=== PATIENT | female | born 1945 | race Caucasian/White ===

== ENCOUNTER → 2016-05-03 | Outpatient (CLI) | payer OTHER, MEDICARE | LOC: BMCIMAGING 14:17 | PROVIDERS: ATTEND Family Medicine Sports Medicine | DX: Z13.820 Encounter for screening for osteoporosis (principal); M85.80 Other specified disorders of bone density and structure, unspecified site ==

== ENCOUNTER → 2016-05-17 | Outpatient (CLI) | payer OTHER, MEDICARE | LOC: FIMAGING 13:53 | DX: Z12.31 Encounter for screening mammogram for malignant neoplasm of breast (principal) | CPT/HCPCS: G0202 ==

== ENCOUNTER → 2016-06-10 | Outpatient (CLI) | payer OTHER, MEDICARE | LOC: BMCIMAGING 18:39 | PROVIDERS: ATTEND Family Medicine | DX: S92.351A Displaced fracture of fifth metatarsal bone, right foot, initial encounter for closed fracture (principal) ==

== ENCOUNTER → 2016-07-08 | Outpatient (CLI) | payer OTHER, MEDICARE | LOC: BMCIMAGING 09:38 | PROVIDERS: ATTEND Podiatrist Foot & Ankle Surgery | DX: S92.354D Nondisplaced fracture of fifth metatarsal bone, right foot, subsequent encounter for fracture with routine healing (principal) ==

== ENCOUNTER 2016-07-13 19:11 | Emergency (ER) | payer OTHER, MEDICARE ==
[2016-07-13 19:27] VITALS: TEMP 98.6
--- NOTE | 2016-07-13 20:28 | EDPHY ---
H & P Time Seen by Provider: 07/13/16 19:31 HPI/ROS: CHIEF COMPLAINT: Right foot injury HISTORY OF PRESENT ILLNESS: 71-year-old female presents to the emergency department with concerns about right foot injury. Patient broke her 5th metatarsal approximately 1 month ago and then had surgery today with Carlos Ramirez. She states that she was discharged from the hospital at 5:30 p.m. and apparently lost her balance and then fell injuring her right foot. She states that she also hit the back of her head. She did not lose consciousness. She denies a headache. Denies neck or back pain. Denies chest pain or difficulty breathing. Denies abdominal pain. The patient called Carlos Ramirez and she was told to come to the emergency department for imaging. REVIEW OF SYSTEMS: Constitutional: No fever, no chills. Eyes: No double or blurry vision. ENT: No sore throat. Respiratory: No cough, no shortness of breath. Cardiac: No chest pain. Gastrointestinal: No abdominal pain, vomiting or diarrhea. Genitourinary: No dysuria. Musculoskeletal: No neck or back pain. Skin: No rashes. Neurological: No headache. Past Medical/Surgical History: Right foot surgery today with Carlos Ramirez for 5th metatarsal fracture Social History: Single and lives in [place] Smoking Status: Never smoked Physical Exam: General Appearance: Alert, no distress. No visible signs of trauma to her head. She is mentating normally and answering questions appropriately. Eyes: Pupils equal and round. Extraocular motions are all intact. ENT: Mouth: Mucous membranes moist. Respiratory: No wheezing, rhonchi, or rales, lungs are clear to auscultation. Cardiovascular: Regular rate and rhythm. Gastrointestinal: Abdomen is soft and nontender, no masses, no rebound or guarding, bowel sounds normal. Neurological: Alert and oriented x 3, cranial nerves II through XII grossly intact Skin: Warm and dry, no rashes. Musculoskeletal: Nontender to palpate along the cervical, thoracic or lumbar spine. Neck is supple. Extremities: Full range of motion of her upper extremities bilaterally in her left lower extremity. Her right foot is in a long-leg posterior Ortho Glass splint which was removed. She has a sutured incision to the dorsal lateral aspect of her right foot overlying 5th metatarsal. There is small amount of bleeding noted. There is no redness or warmth or signs of infection. No purulent drainage. No lymphangitis. Psychiatric: Patient is oriented X 3, there is no agitation. Constitutional: Initial Vital Signs Temperature (C) 37 C 07/13/16 19:24 Heart Rate 85 07/13/16 19:24 Respiratory Rate 16 07/13/16 19:24 Blood Pressure 148/81 H 07/13/16 19:24 O2 Sat (%) 93 07/13/16 19:24 O2 Delivery Mode Room Air Allergies/Adverse Reactions: simvastatin [From Zocor] Allergy (Severe, Verified 07/13/16 19:23) EXTREME LEG PAIN Sulfa (Sulfonamide Antibiotics) Allergy (Intermediate, Verified 07/13/16 19:23) Hives Home Medications: Medication Instructions Recorded Atorvastatin Calcium [Lipitor 40 40 mg PO HS 06/15/11 mg (RX)] metFORMIN HCL [Glucophage 500 mg PO BID 06/15/11 (RX)] Acyclovir [Zovirax] 0 mg PO HS 06/29/12 Effexor DAILY06 07/12/16 Fish Oil DAILY 07/12/16 Herbal Drugs 07/12/16 Tumeric DAILY 07/12/16 Hydrocodone/APAP 5/325 [[place] 1 each PO Q4-6PRN PRN #15 tab 07/13/16 5/325 (*)] Medical Decision Making - Diagnostics Imaging Results: Imaging Impressions Foot X-Ray 07/13/16 20:07 Impression: Postoperative changes of ORIF with postoperative decrease in displacement of the fifth metatarsal fracture compared to the preoperative study. 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 ED Course/Re-evaluation: 71-year-old female presents after mechanical fall injuring her right foot that she just had surgery on today. X-rays reveal hardware is intact. Her incision is sutured. This was redressed and she was placed in posterior Ortho Glass splint. She was given prescription for hydrocodone per her request. She was also asking for referral to a different orthopedic surgeon not at the [facility]. She was given Dr. Yadiel Meneses information. Differential Diagnosis: Including but not limited to fracture, dislocation, contusion, sprain Departure - Departure Disposition: Home, Routine, Self-Care Clinical Impression: Healing fracture right foot Contusion of right foot Qualifiers: Encounter type: initial encounter Qualified Code(s): S90.31XA - Contusion of right foot, initial encounter Condition: Good Instructions: Foot Contusion (ED) Additional Instructions: Keep dressing and splint on until follow-up. Referrals: Yadiel Meneses MD [Medical Doctor] - As per Instructions Carlos Ramirez DPM [Doctor of Podiatric Medicine] - As per Instructions Anurag Pearson MD [Medical Doctor] - As per Instructions ( [facility] orthopedic surgeon) Prescriptions: Hydrocodone/APAP 5/325 [[place] 5/325 (*)] 1 each PO Q4-6PRN PRN #15 tab PRN Reason: Pain, Severe
[2016-07-13 21:43] VITALS: BP 132/76; PULSE 80; RESP 18; O2SAT 94
== END 2016-07-13 21:47 | disposition home or self-care (01) ==
DX: S92.351A Displaced fracture of fifth metatarsal bone, right foot, initial encounter for closed fracture (principal); S90.31XA Contusion of right foot, initial encounter; W19.XXXA Unspecified fall, initial encounter
CPT/HCPCS: C1713; J0690; J1100; J2250; J2405; J2704; J3010

== ENCOUNTER → 2016-07-13 | Day surgery (SDC) | payer OTHER, MEDICARE ==
[~2016-07-13] MED LIST: BUPIVACAINE 0.5% 30 ML SDV ONE; CEFAZOLIN 2 GM/DEXTROSE/100 ML BAG IV ONE; CHLORHEXIDINE GLUC HIBICLENS 118 ML BTL TP ONE; DEXAMETHASONE 4 MG/ML VIAL ONE; LIDOCAINE 1% 300 MG/30 ML SDV ONE; MIDAZOLAM 2 MG/2 ML VIAL ONE; ONDANSETRON 4 MG/2 ML VIAL ONE; OXYCODONE/APAP 5/325 TAB PO PRN; PROPOFOL/EMULSION 500 MG/50 ML BOTTLE IV ONE; ceFAZolin 2 GM/DEXTROSE 100 ML IV ONE; fentaNYL 100 MCG/2 ML INJ ONE
--- NOTE | 2016-07-13 17:57 | GOP ---
[f rep st] OPERATIVE REPORT DATE OF OPERATION: 07/13/2016 SURGEON: Carlos Ramirez DPM DESK REPRESENTATIVE: None. ANESTHESIA: Local with monitored anesthesia care. PREOPERATIVE DIAGNOSIS: Avulsion fracture of right 5th metatarsal base. POSTOPERATIVE DIAGNOSIS: Avulsion fracture of right 5th metatarsal base. PROCEDURE PERFORMED: Open reduction internal fixation of the right 5th metatarsal fracture. FINDINGS: SPECIMENS: None. ESTIMATED BLOOD LOSS: Scant. DESCRIPTION OF PROCEDURE: Under mild sedation, the patient was brought into the operating room, michael kelsey on the operating table in a supine position. Following further IV sedation, 24 cc of 0.5% Prem ine plain was infiltrated about the patient's right lateral mid foot. The foot was then scrubbed, p repped, and draped in the usual aseptic manner. A sterile pneumatic tourniquet was placed about the patient's well-padded supramalleolar area of the right lower extremity. An Esmarch bandage was uti lized to exsanguinate the patient's right foot, and the tourniquet was inflated to 250 mmHg. It felix uld also be noted that within 30 minutes prior to incision, 2 g of Ancef was infiltrated via IV. Attention was then directed to the area overlying the lateral aspect of the patient's 5th metatarsal base where a 5 cm linear longitudinal incision was made in line and parallel with the longitudinal axis of the 5th metatarsal. The incision was deepened via sharp and blunt dissection care being javier en to identify and retract all vital neural and vascular structures. The sural nerve was identified and retracted dorsally. Periosteal tissue was then incised in line with the skin incision and refl ected dorsally and plantarly thus exposing the base of the 5th metatarsal. The fracture line was im mediately identified. The fracture site was evacuated of any hematoma and any soft tissue obstructi on via curettage. Bleeding surfaces were obtained. At this time, a universal hook plate was placed around the avulsion fracture/base of the 5th metatarsal and impacted into place with a tamp. This helped close down the fracture site partially. Then within the oblong hole in the distal portion of the hook plate, a 60 mm screw was drilled eccentrically and validated. This sucked down the fractu re site and reduced the fracture completely. At this time, locking screws were placed on either ady e of the nonlocking eccentrically drilled screw. A third locking screw was then placed within the f racture fragment itself to complete 2 sites of fixation on either side of the fracture site. The no nlocking screw was explanted and passed from the operative field as it was not validating. The woun d was then flushed with copious amounts of sterile normal saline. Final fluoroscopic x-rays were ta tye. The wound was closed in layers with 2-0 Vicryl closing the periosteal layer, 3-0 Monocryl clos ing the subcutaneous layer. A running baseball-type suture of 4-0 Prolene was used to reapproximate and coapt the skin. The wound was then dressed with Xeroform and a sterile compressive dressing co nsisting of 4 x 4's and Sheila. A light Coban wrap was also applied. The tourniquet was dropped, an d a prompt hyperemic response was noted to all digits of the right foot. A posterior splint was alison lied with the patient's ankle at 90 degrees. This was also used to help with any postoperative genia a. The patient tolerated the procedure and anesthesia well. She was transferred to the recovery room w ith vital signs stable and vascular status intact to all digits of the right foot. Following a anibal od of postoperative monitoring, the patient will be discharged home with the following written and o ral postoperative instructions: 1. Keep dressing clean, dry, and intact. 2. Use caution while taking pain medication. 3. Ice and elevate as instructed. 4. Nonweightbearing at all times with crutches and/or knee scooter. 5. All followup questions and concerns should be directed toward [facility] at [phone]. HEMOSTASIS: Pneumatic ankle tourniquet at 250 mmHg x47 minutes. MATERIALS: A universal Arthrex hook plate with 3 locking screws measuring 10, 16, and 8 mm respecti vely injectables 24 cc of 0.5% Marcaine plain as well as 10 cc of 1% lidocaine plain. COMPLICATIONS: None. INDICATIONS FOR PROCEDURE: The patient initially showed up to my office with a nondisplaced avulsio n fracture of the right 5th metatarsal base. The patient then followed up 5 days ago after turning her foot or stepping down and hearing a pop. The followup x-ray showed a 4 mm displacement of the a vulsion fracture. The patient understands the risks, benefits, and alternatives to the procedure, p resented and wishes to proceed. /[id number]/MODL
== END | disposition home or self-care (01) ==
LOC: FSGY 12:54
PROVIDERS: ATTEND Podiatrist Foot & Ankle Surgery
PROC: 0QSN04Z Reposition Right Metatarsal with Internal Fixation Device, Open Approach (ICD-10-PCS; principal; 2016-07-13 14:30)
DX: S92.351A Displaced fracture of fifth metatarsal bone, right foot, initial encounter for closed fracture (principal); E11.9 Type 2 diabetes mellitus without complications; I10 Essential (primary) hypertension; I25.10 Atherosclerotic heart disease of native coronary artery without angina pectoris; G47.33 Obstructive sleep apnea (adult) (pediatric); E78.5 Hyperlipidemia, unspecified; W19.XXXA Unspecified fall, initial encounter
CPT/HCPCS: C1713; J0690; J1100; J2250; J2405; J2704; J3010

== ENCOUNTER → 2017-04-15 | Outpatient (CLI) | payer OTHER, MEDICARE | LOC: BMCIMAGING 10:00 | PROVIDERS: ATTEND Family Medicine | DX: M25.552 Pain in left hip (principal); Z96.642 Presence of left artificial hip joint ==

== ENCOUNTER → 2017-07-25 | Outpatient (CLI) | payer OTHER, MEDICARE | LOC: BMCIMAGING 12:00 | PROVIDERS: ATTEND Family Medicine | DX: Z12.31 Encounter for screening mammogram for malignant neoplasm of breast (principal) ==

== ENCOUNTER → 2017-10-16 | Outpatient (CLI) | payer OTHER, MEDICARE | LOC: BMCIMAGING 11:03 | PROVIDERS: ATTEND Family Medicine | DX: M23.41 Loose body in knee, right knee (principal) ==

== ENCOUNTER 2017-12-16 09:29 | Emergency (ER) | payer OTHER, MEDICARE ==
[2017-12-16 09:37] VITALS: BP 115/81
--- NOTE | 2017-12-16 10:03 | EDPHY ---
H & P Time Seen by Provider: 12/16/17 09:50 HPI/ROS: HPI Concerned about swelling of left arm. 72-year-old female by private vehicle. She states that she has a small scar which is on the posterior proximal aspect of her left forearm just distal to her elbow. She reports she has had this for some time. She is concerned that the scars more prominent than it should be and that it may be infected. She denies any fever. No other associated signs or symptoms. She denies significant pain. ROS: Constitutional: No fever, no chills. No weakness. Musculoskeletal: No back pain. No neck pain. As above. No other extremity pain. Skin: No rashes. As above. Neurological: No focal weakness or altered sensation. Past medical history: Right foot surgery, prediabetic, hyperlipidemia. Social history: She is here by herself. No alcohol. Physical Exam: General Appearance: Alert, no distress. This patient is responding to questions appropriately and in full sentences. This patient appears well- hydrated and well-nourished. Eyes: Pupils equal and round no pallor or injection. No lid edema, erythema or injection. Left upper extremity exam: She has a small scar measuring 1.5 cm which is well- healed and with no evidence of infection involving the posterior proximal aspect of the left forearm skin. There is no associated erythema, warmth, induration, edema or fluctuance. The left upper extremity is neurovascularly intact. There is no asymmetric swelling of the left upper extremity relative to the right upper extremity. The muscle compartments of the left upper extremity are soft. Neurological: Motor sensory function is grossly intact. Cranial nerves are normal. Gait is normal. Skin: Warm and dry, no rashes. Extremities are symmetrical. All joints range without pain or impingement. Psychiatric: No agitation. No depression. Database: EKG: Imaging: Procedures: Emergency department course: Triage vital signs reviewed and are normal. I explained to the patient that I saw no evidence of infection. There was nothing that required incision and drainage. I will have her follow up with her primary care physician on Monday or Monday of this week for recheck. She is in agreement with this plan and feels comfortable going home. Return to emergency department precautions have been reviewed with her. All of her questions were answered. She was discharged from the emergency department in good condition. Differential Diagnosis: The differential diagnosis on this patient includes but is not limited to well- healed scar left forearm. Cellulitis, abscess, DVT, compartment syndrome unlikely. This represents a partial list of diagnoses considered. These considerations are based on history, physical exam, past history, reassessment and diagnostic testing. Smoking Status: Never smoked Constitutional: Initial Vital Signs Temperature (C) 36.7 C 12/16/17 09:34 Heart Rate 87 12/16/17 09:34 Respiratory Rate 17 12/16/17 09:34 Blood Pressure 115/81 H 12/16/17 09:34 O2 Sat (%) 95 12/16/17 09:34 O2 Delivery Mode Room Air Allergies/Adverse Reactions: simvastatin [From Zocor] Allergy (Severe, Verified 12/16/17 09:33) EXTREME LEG PAIN Sulfa (Sulfonamide Antibiotics) Allergy (Intermediate, Verified 12/16/17 09:33) Hives Home Medications: Medication Instructions Recorded Atorvastatin Calcium [Lipitor 40 40 mg PO HS 06/15/11 mg (RX)] metFORMIN HCL [Glucophage 500 mg PO BID 06/15/11 (RX)] Acyclovir [Zovirax] 0 mg PO HS 06/29/12 Effexor DAILY06 07/12/16 Fish Oil DAILY 07/12/16 Departure - Departure Disposition: Home, Routine, Self-Care Clinical Impression: Scar of forearm Condition: Good Instructions: Laceration (ED) Additional Instructions: Read and follow provided instructions. Follow-up with your primary care physician on Monday or Monday of this week for re-evaluation. Return to the emergency department for worsening swelling, redness, warmth, fever or other serious concerns. Referrals: Isaac Sotelo DO [Primary Care Provider] - As per Instructions
== END 2017-12-16 10:11 | disposition home or self-care (01) ==
DX: L90.5 Scar conditions and fibrosis of skin (principal)